=== PATIENT | male | born 1960 | race Caucasian/White ===

== ENCOUNTER 2019-04-16 08:22 | Day surgery (SDC) | payer BC ==
[2019-04-16] MEDS ORDERED: Dextrose 5%-Lactated Ringers 1,000 ML IV SCH (08:55)
[2019-04-16] MEDS ORDERED: Glycopyrrolate 0.2 MG/ML 2 ML SDV IVPUSH ONE (08:55)
[2019-04-16] MEDS ORDERED: Midazolam 1 MG/ML 2 ML SDV ONE (09:44)
[2019-04-16] MEDS ORDERED: fentaNYL 100 MCG/2 ML SDV ONE (09:44)
[2019-04-16] MEDS ORDERED: Propofol 200 MG/20 ML SDV ONE ×2 (09:44→10:09)
--- NOTE | 2019-04-22 14:26 | OR ---
DATE OF PROCEDURE: 04/16/2019 SURGEON: Tim Richmond MD PREOPERATIVE DIAGNOSIS: Blood in stool. POSTOPERATIVE DIAGNOSES: 1. 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 2. Rectal bleeding secondary to excoriated hemorrhoids. OPERATIVE PROCEDURES: 1. Esophagogastroduodenoscopy with: a. Biopsy of esophagogastric junction for histologic evaluation. b. Biopsies of antrum for CLOtest. 2. Flexible colonoscopy. ANESTHESIA: IV sedation. INDICATIONS FOR PROCEDURE: This is a 59-year-old presenting with history of some rectal bleeding. The bleeding is bright red, so it is probably from the sigmoid colon or anorectal source. The plan is to proceed with an upper and lower endoscopy with biopsies and/or polypectomy as indicated. Potential risks including bleeding and perforation were discussed, and the patient wishes to proceed. DETAILS OF PROCEDURE: The patient was taken to the operating room and placed in a left lateral decubitus position. IV sedation was administered, after which the upper GI endoscope was passed orally through the length of the esophagus, into the stomach with retroflexion view of the fundus, thereafter through the pyloric channel and into the proximal duodenum. Findings included normal hypopharynx, larynx, upper esophageal sphincter, and esophageal body. At the EG junction, the patient was noted to have a roughly 2 cm hiatal hernia. 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 No stricturing or plaque formation were noted within the remainder of the stomach. The hiatal hernia was noted on retroflexion, but there was no significant inflammation in the remaining stomach nor was there any in the visualized portion of the pyloric channel and duodenum. The scope was then withdrawn and biopsies were obtained from the antrum to assess the patient's H. pylori status by means of CLOtest and multiple biopsies were obtained from the esophagogastric junction and sent for histologic evaluation. The scope was then withdrawn and attention was taken to the colonoscopy. Initial digital rectal exam was performed, it was unremarkable. The colonoscope was then passed rectally and both from a retroflexed visualization as well straight-on visualization, the patient was noted to have some excoriated hemorrhoids. One of these was quite reddened and inflamed and while there was no bleeding, this likely is the cause of the patient's history of rectal bleeding. The scope was then passed to the cecum. The prep was quite good. Apart from the excoriated hemorrhoids, there was no diverticular disease, no areas of polyp formation or other signs of neoplasia, and no areas of colitis, and no blood or bleeding seen. The scope was then withdrawn and the procedure then concluded. The plan will be to begin the patient on Protonix 40 mg daily and we will see him back next Saturday for recheck to discuss long-term management of the gastroesophageal reflux disease. If he has persistent bleeding, he would also be a candidate for placement of a band on the involved hemorrhoid or hemorrhoids in the clinic. Tim Richmond MD /[id number]
== END 2019-04-16 12:05 | disposition home or self-care (01) ==
LOC: JP.SDS 08:22
PROVIDERS: ATTEND Surgery
DX: K64.9 Unspecified hemorrhoids (principal); K21.0 Gastro-esophageal reflux disease with esophagitis; K44.9 Diaphragmatic hernia without obstruction or gangrene; I10 Essential (primary) hypertension
CPT/HCPCS: 43239; 45378; 87081; 88305; J2250; J2704; J3010; J3490; J7121